=== PATIENT | female | born 1980 | race Caucasian/White ===

== ENCOUNTER 2016-03-09 17:03 | Emergency (ER) | payer OTHER ==
[2016-03-09] MEDS ORDERED: Ondansetron ODT 4 MG TAB ONE (18:39)
[2016-03-09] MEDS ORDERED: HYDROcodone/Acetaminophen 10/325 mg Tablet ONE (18:39)
[2016-03-09] MEDS ORDERED: Naproxen 500 MG TAB ONE (18:39)
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
== END 2016-03-09 20:31 | disposition home or self-care (01) ==
LOC: MADERS 17:03
DX: S63.281A Dislocation of proximal interphalangeal joint of left index finger, initial encounter (principal); F07.81 Postconcussional syndrome; F90.9 Attention-deficit hyperactivity disorder, unspecified type; Z79.899 Other long term (current) drug therapy; V89.2XXA Person injured in unspecified motor-vehicle accident, traffic, initial encounter
CPT/HCPCS: 70450; 70486; 72125; Q0162